=== PATIENT | female | born 1940 | race Caucasian/White ===

== ENCOUNTER 2023-08-31 15:35 | Emergency (ER) | payer OTHER, MEDICARE ==
[2023-08-31] MEDS ORDERED: AMOX TR/POT CLAV 875MG/125MG TABLETS (FP) PO ONE (17:00)
[2023-08-31] MEDS ORDERED: AMOX TR/POT CLAV 875MG/125MG TABLETS (FP) ONE (17:42)
[2023-08-31 18:15] VITALS: BP 132/74; PULSE 81; RESP 18; TEMP 98; BMI 22.7
== END 2023-08-31 18:19 | disposition home or self-care (01) ==
LOC: FER 15:35
PROC: 0HQ1XZZ Repair Face Skin, External Approach (ICD-10-PCS; principal; 2023-08-31)
DX: S02.2XXB Fracture of nasal bones, initial encounter for open fracture (principal); S80.212A Abrasion, left knee, initial encounter; S09.90XA Unspecified injury of head, initial encounter; W10.1XXA Fall (on)(from) sidewalk curb, initial encounter
CPT/HCPCS: 70450-TC; 70486-TC; 72125-TC; 99284-25

== ENCOUNTER 2023-09-05 10:53 | Emergency (ER) | payer OTHER, MEDICARE ==
[2023-09-05 11:28] VITALS: BP 132/85; PULSE 82; RESP 18; TEMP 98.2; BMI 22.6
== END 2023-09-05 11:33 | disposition home or self-care (01) ==
LOC: FER 10:53
DX: Z48.02 Encounter for removal of sutures (principal); R51.9 Headache, unspecified; M25.562 Pain in left knee
CPT/HCPCS: 99282-25